=== PATIENT | female | born 1995 | race Caucasian/White ===

== ENCOUNTER 2017-07-07 12:58 | Emergency (ER) | payer OTHER ==
[~2017-07-07] VITALS: Ht 172.7 cm; Wt 65.0 kg
[2017-07-07 13:04] VITALS: TEMP 98.1
[2017-07-07] MEDS ORDERED: CEPHALEXIN500 M1 PO (13:07)
[2017-07-07] MEDS ORDERED: MINIPRESS 1M1 MG/CAP PO (13:08)
[2017-07-07] MEDS ORDERED: EFFEXOR XR37.5 MG/CA (13:08)
[2017-07-07] MEDS ORDERED: LAMICTAL 25MG T25 MG (13:08)
[2017-07-07] MEDS ORDERED: LAMICTAL CD25 MG PO (13:49)
[2017-07-07] MEDS ORDERED: EFFEXOR 3737.5 MG/TA PO (13:49)
[2017-07-07 14:43] LABS: BASO % 0.3 % (0.0-2.0); EOS # 0.1 (0.0-0.7); EOS % 1.3 % (0-4.0); GRAN # 4.7 (1.4-6.5); GRAN % 60.9 % (42.2-75.2); LYMPH # 2.2 (1.2-3.4); LYMPH % 28.3 % (20.0-51.0); MEAN CELL VOLUME 87 fl (80.0-100.0); MEAN CORPUSCULAR HGB CONC 32 g/dl (33.0-37.0); MEAN PLATELET VOLUME 9.4 fl (7.4-10.4); MONO # 0.7 (0.1-0.6); MONO % 8.7 % (1.7-9.3); PLATELET COUNT 274 K/mm3 (130-400); RED BLOOD COUNT 4.19 M/mm3 (4.10-5.30); WHITE BLOOD COUNT 7.7 K/mm3 (4.8-10.8)
[2017-07-07 14:46] LABS: HEMATOCRIT 36.6 % (37.0-47.0); HEMOGLOBIN 11.6 g/dl (12.5-16.0); MEAN CORPUSCULAR HEMOGLOBIN 28 pg (27.0-31.0)
[2017-07-07 15:02] LABS: ADJUSTED CALCIUM 9.8 mg/dL (8.4-10.2); BILIRUBIN,TOTAL 0.5 mg/dL (0.0-1.0); C-REACTIVE PROTEIN 3.2 mg/dL (0.0-0.9); CALCIUM 9.8 mg/dL (8.4-10.2); CREATININE, serum 0.91 mg/dL (0.52-1.25); POTASSIUM 4.2 mmol/L (3.4-5.0); TOTAL PROTEIN 7.7 gm/dL (6.4-8.2)
[2017-07-07 17:34] VITALS: BP 102/7; PULSE 90
== END 2017-07-07 17:38 | disposition home or self-care (01) ==
LOC: COL.ER 12:58
PROVIDERS: Physician Assistant
DX: N64.4 Mastodynia (principal); I80.9 Phlebitis and thrombophlebitis of unspecified site; F32.9 Major depressive disorder, single episode, unspecified
CPT/HCPCS: J1200; J2405; J7030; Q9967

== ENCOUNTER 2017-08-01 16:43 | Emergency (ER) | payer OTHER ==
[~2017-08-01] VITALS: Ht 172.7 cm; Wt 64.5 kg
[~2017-08-01 16:43] MED LIST: CEPHALEXIN500 M1 PO; EFFEXOR 3737.5 MG/TA PO; EFFEXOR XR37.5 MG/CA; LAMICTAL 25MG T25 MG; LAMICTAL CD25 MG PO; MINIPRESS 1M1 MG/CAP PO
[2017-08-01 16:46] VITALS: BP 109/67; TEMP 98.7
[2017-08-01] MEDS ORDERED: TESSALON P100 MG/CAP PO (16:50)
[2017-08-01] MEDS ORDERED: MUCINEX 60600 MG/TA1 PO (16:50)
[2017-08-01] MEDS ORDERED: NATURAL E400 IU PO (16:50)
[2017-08-01] MEDS ORDERED: SUDAFED 12 HOU120 MG PO (16:51)
[2017-08-01] MEDS ORDERED: OMNICEF 300MG300 MG PO (17:30)
[2017-08-01 17:41] VITALS: PULSE 92
== END 2017-08-01 17:42 | disposition home or self-care (01) ==
LOC: COL.ER 16:43
DX: J02.0 Streptococcal pharyngitis (principal); Z98.890 Other specified postprocedural states

== ENCOUNTER 2017-11-09 03:09 | Emergency (ER) | payer OTHER ==
[~2017-11-09] VITALS: Ht 172.7 cm; Wt 61.4 kg
[~2017-11-09 03:09] MED LIST changes: +MUCINEX 60600 MG/TA1 PO; +NATURAL E400 IU PO; +OMNICEF 300MG300 MG PO; +SUDAFED 12 HOU120 MG PO; +TESSALON P100 MG/CAP PO
[2017-11-09 04:28] LABS: COLLECTION METHOD CLEAN CATCH
[2017-11-09 04:34] LABS: MUCOUS Present /lpf; PH 5 (5-8); URINE APPEARANCE Clear; URINE BACTERIA None Seen /hpf; URINE BILIRUBIN Negative (NEGATIVE); URINE BLOOD Negative (NEGATIVE); URINE COLOR Yellow; URINE GLUCOSE Negative (NEGATIVE); URINE KETONE Trace (NEGATIVE); URINE LEUKOCYTE ESTERASE Negative (NEGATIVE); URINE NITRATE Negative (NEGATIVE); URINE PROTEIN(semi-quant) Negative (NEGATIVE); URINE RBC 0-2 /hpf; URINE UROBILINOGEN Negative (NEGATIVE)
[2017-11-09 04:41] LABS: TRICYCLIC ANTIDEPRESS URINE NEGATIVE
[2017-11-09 04:42] LABS: BASO % 0.2 % (0.0-2.0); EOS % 0.2 % (0-4.0); GRAN # 5.9 (1.4-6.5); GRAN % 59.5 % (42.2-75.2); LYMPH # 3.3 (1.2-3.4); LYMPH % 33.2 % (20.0-51.0); MEAN CELL VOLUME 88 fl (80.0-100.0); MEAN CORPUSCULAR HGB CONC 33 g/dl (33.0-37.0); MONO # 0.7 (0.1-0.6); MONO % 6.6 % (1.7-9.3); PLATELET COUNT 267 K/mm3 (130-400); RED BLOOD COUNT 4.12 M/mm3 (4.10-5.30); REDCELL DISTRIBUTION WIDTH-CV 13.9 % (11.5-14.5)
[2017-11-09 05:03] LABS: HEMATOCRIT 36.3 % (37.0-47.0); HEMOGLOBIN 11.8 g/dl (12.5-16.0); MEAN CORPUSCULAR HEMOGLOBIN 29 pg (27.0-31.0)
[2017-11-09 05:09] LABS: ALANINE AMINOTRANSFERASE 30 U/L (9-52); ALKALINE PHOSPHATASE 46 U/L (50-136); ANION GAP 10 mmol/L (7-16); AST,SGOT 22 U/L (15-37); BILIRUBIN,TOTAL 0.3 mg/dL (0.0-1.0); BLOOD UREA NITROGEN 9 mg/dL (7-17); CALCIUM 9.4 mg/dL (8.4-10.2); CARBON DIOXIDE 25 mmol/L (22-30); CHLORIDE 102 mmol/L (98-107); CREATININE, serum 0.93 mg/dL (0.52-1.25); GLUCOSE 98 mg/dL (74-106); POTASSIUM 3.7 mmol/L (3.4-5.0); SODIUM 138 mmol/L (137-145); TOTAL PROTEIN 7.2 gm/dL (6.4-8.2)
[2017-11-09 05:12] LABS: ACETAMINOPHEN < 10 ug/mL (10-30); ALCOHOL(ethanol),MEDICAL < 10 mg/dL; SALICYLATE < 1.0 mg/dL
[2017-11-09 09:44] VITALS: BP 123/70; PULSE 78
== END 2017-11-09 09:45 | disposition home or self-care (01) ==
LOC: COL.ER 03:09
PROVIDERS: Emergency Medicine
DX: S71.111A Laceration without foreign body, right thigh, initial encounter (principal); F32.9 Major depressive disorder, single episode, unspecified; F91.8 Other conduct disorders; F41.9 Anxiety disorder, unspecified; F43.10 Post-traumatic stress disorder, unspecified; Z91.5 Personal history of self-harm; W26.0XXA Contact with knife, initial encounter

== ENCOUNTER → 2019-09-29 | Outpatient (CLI) | payer OTHER | LOC: MC.RAD 13:57 | DX: N63.31 Unspecified lump in axillary tail of the right breast (principal) ==

== ENCOUNTER → 2020-03-29 | Outpatient (CLI) | payer OTHER | LOC: MC.RAD 09:54 | DX: N63.10 Unspecified lump in the right breast, unspecified quadrant (principal) ==

== ENCOUNTER 2020-05-19 18:37 | Outpatient (CLI) | payer OTHER ==
[~2020-05-19] VITALS: Ht 172.7 cm; Wt 84.5 kg
--- NOTE | 2020-05-19 18:30 | NUR ---
G2L0. 38-5. Ambulatory to LDR 5 with spouse. Clean gown on. EFM and TOCO explained and applied. Pt states she has been having contraction since 0700 this morning, states her last one was an hour and half ago. Pt reports pain that starts in her lower back and radiates to her lower abdomen. Pt denies leaking of fluids or vaginal bleeding. States she did have "pink tinged" discharge this morning after using the restroom but nothing since then. Reports good movement. 1840: SVE /-3. Assessment completed. Plan of care explained. Call light within reach.
[2020-05-19] MEDS ORDERED: PRENATAL MVI PO (18:45)
[2020-05-19] MEDS ORDERED: ZOVIRAX400 MG PO (18:46)
[2020-05-19 19:00] VITALS: BP 123/74; PULSE 75; TEMP 98.5
--- NOTE | 2020-05-19 19:40 | NUR ---
SVE unchanged. 1941: Pt off monitors to use restroom. 1943: updated on pt status. See physican notificaiton. 1954: Discharge instructions given to pt and . Questions answered. Pt ambulatory off unit and home with
== END 2020-05-19 19:55 | disposition home or self-care (01) ==
LOC: LDR 18:37 → LDRO 18:37 → LDR 19:55 → LDRO 20:08 → LDR 20:09
DX: O62.9 Abnormality of forces of labor, unspecified (principal); Z3A.38 38 weeks gestation of pregnancy
CPT/HCPCS: OP

== ENCOUNTER 2020-05-26 21:37 | Inpatient (IN) | payer OTHER ==
[~2020-05-26] VITALS: Ht 172.7 cm; Wt 85.3 kg
--- NOTE | 2020-05-26 21:35 | NUR ---
PT TO UNIT AMBULATORY WITH COMPLAINTS OF CONTRACTIONS. PT AND SPOUSE ORIENTED TO ROOM, CHANGED INTO GOWN, SVE PERFORMED, VS OBTAINED, EFM X2 APPLIED.
[~2020-05-26 21:37] MED LIST changes: +PRENATAL MVI PO; +ZOVIRAX400 MG PO
[2020-05-26 21:44] VITALS: BP 119/79; PULSE 89; TEMP 97.5
[2020-05-26 22:00] VITALS: BP 119/79; PULSE 89; TEMP 97.5
[2020-05-26 23:19] LABS: BASO % 0.2 % (0.0-2.0); EOS # 0.1 (0.0-0.7); EOS % 0.3 % (0-4.0); GRAN # 15.4 (1.4-6.5); GRAN % 77.5 % (42.2-75.2); HEMATOCRIT 40.9 % (37.0-47.0); HEMOGLOBIN 13.4 g/dl (12.5-16.0); LYMPH # 2.9 (1.2-3.4); LYMPH % 14.4 % (20.0-51.0); MEAN CELL VOLUME 86 fl (80.0-100.0); MEAN CORPUSCULAR HEMOGLOBIN 28 pg (27.0-31.0); MEAN CORPUSCULAR HGB CONC 33 g/dl (33.0-37.0); MEAN PLATELET VOLUME 8.8 fl (7.4-10.4); MONO # 1.3 (0.1-0.6); MONO % 6.7 % (1.7-9.3); PLATELET COUNT 246 K/mm3 (130-400); RED BLOOD COUNT 4.74 M/mm3 (4.10-5.30); REDCELL DISTRIBUTION WIDTH-CV 14.5 % (11.5-14.5)
[2020-05-27] VITALS (49 sets, daily range): BP systolic 85–132; BP diastolic 46–78; PULSE 64–112; TEMP 98.1–98.8
--- NOTE | 2020-05-27 | NUR ---
0000 PULSE OX ON FOR 20 MINUTES. VERY UNCOMFORTABLE WITH CONTRACTIONS. SVE WITH NO CERVICAL CHANGE. EFM OFF AND UP TO BR AND AMB IN HALLWAY FOR 30 MINUTES.
--- NOTE | 2020-05-27 00:30 | NUR ---
0030 RETURNED TO BED AND EFM ON AFTER UP AMB AND SITTING ON BIRTHING BALL. 0040 WANTS EPIDURAL. IV FLUIDS STARTED AND EMPLOYEE RELATIONS ASSISTANT NOTIFIED.
--- NOTE | 2020-05-27 01:00 | NUR ---
0100 SITTING UP FOR EPIDURAL PLACEMENT. SEE ANESTHSIA RECORDS FOR MORE INFORMATION.
--- NOTE | 2020-05-27 09:20 | NUR ---
0830 PATIENT VOMITS AT THIS TIME. PATIENT VERY UNCOMFORTABLE, BREATHS THROUGH CONTRACTIONS. ENCOURAGED PATIENT TO PRESS EPIDURAL MED BUTTON.
--- NOTE | 2020-05-27 09:24 | NUR ---
0915 ZOFRAN 4 MG IV GIVEN FOR NAUSEA AND YAEL BECKER CANE WEIGHER HELPER AT BEDSIDE FOR ADDITIONAL EPIDURAL DOSE.
--- NOTE | 2020-05-27 10:44 | NUR ---
0950 PATIENT FEELING PRESSURE. SVE /+2 DR QUINONEZ CALLED TO COME FOR DELIVERY. 1000 DR QUINONEZ HERE. PATIENT PUSHES WITH CONTRACTIONS. 1004 BABY GIRL BORN VIA BY DR QUINONEZ. BABY TO MOMS CHEST SKIN TO SKIN. CORD CLAMPED AND CUT BY . AND . BABY REMAINS SKIN TO SKIN. BLEEDING WNL. 1010 PLACENTA DELIVERED. AND PITOCIN STARTED AT 333/HR PER PROTOCOL. FUNDUS FIRM AN DBLEEDING WNL. 2 DEGREE TEAR REPAIRED BY DR QUINONEZ AT THIS TIME. PATIENT TOLERATES WELL. FUNDUS FIRM AND BLEEDING WNL
[2020-05-28 00:30] VITALS: BP 119/67; PULSE 80
[2020-05-28 05:05] VITALS: BP 114/70; PULSE 84
[2020-05-28 06:50] VITALS: BP 114/68; PULSE 90; TEMP 98
[2020-05-28 08:02] LABS: HEMATOCRIT 34.9 % (37.0-47.0); HEMOGLOBIN 11.4 g/dl (12.5-16.0)
[2020-05-28] MEDS ORDERED: IBU600 MG PO (09:57)
== END 2020-05-28 14:55 | disposition home or self-care (01) | DRG 807 ==
LOC: LDRO 21:37 → LDR 22:45 → LDRO 22:54 → LDR 22:55 → OB 05-27 17:29
PROVIDERS: Obstetrics & Gynecology; ADMIT Obstetrics & Gynecology
PROC: 10E0XZZ Delivery of Products of Conception, External Approach (ICD-10-PCS; principal; 2020-05-27)
PROC: 0KQM0ZZ Repair Perineum Muscle, Open Approach (ICD-10-PCS; 2020-05-27)
DX: O99.344 Other mental disorders complicating childbirth (principal); Z37.0 Single live birth; O71.82 Other specified trauma to perineum and vulva; Z3A.39 39 weeks gestation of pregnancy; O70.1 Second degree perineal laceration during delivery; L40.4 Guttate psoriasis
CPT/HCPCS: J2405; J2590; J2795; J7120

== ENCOUNTER → 2020-05-28 | Outpatient (CLI) | payer OTHER ==
[~2020-05-28] MED LIST changes: +IBU600 MG PO
== END ==
LOC: ZCOL.LAB 08:30
DX: Z53.9 Procedure and treatment not carried out, unspecified reason (principal)